=== PATIENT | male | born 1960 | race Caucasian/White ===

== ENCOUNTER 2020-03-31 16:15 | Emergency (ER) | payer BC ==
[~2020-03-31] VITALS: Ht 175.3 cm; Wt 84.0 kg
[2020-03-31 16:18] VITALS: BP 121/75
[2020-03-31] MEDS ORDERED: LIDOCAINE 1%, 10ML INFIL ONE (17:00)
[2020-03-31] MEDS ORDERED: LIDOCAINE-MPF 1%, 5ML ONE (17:20)
[2020-03-31] MEDS ORDERED: NEOSPORIN OINT. PKT 1 PACKET ONE (17:22)
== END 2020-03-31 18:11 | disposition home or self-care (01) ==
LOC: ED 17:09
DX: S63.296A Dislocation of distal interphalangeal joint of right little finger, initial encounter (principal); S63.287A Dislocation of proximal interphalangeal joint of left little finger, initial encounter; S00.81XA Abrasion of other part of head, initial encounter; W01.0XXA Fall on same level from slipping, tripping and stumbling without subsequent striking against object, initial encounter; Y93.89 Activity, other specified; Y92.410 Unspecified street and highway as the place of occurrence of the external cause; Y99.8 Other external cause status
CPT/HCPCS: 26770; 99284